=== PATIENT | male | born 1975 | race Caucasian/White ===

== ENCOUNTER 2021-07-14 21:01 | Emergency (ER) | payer MEDICARE, OTHER ==
--- NOTE | 2021-07-14 21:14 | ERPHSYRPT ---
- History of Present Illness Time Seen by Provider: 07/14/21 21:13 Source: patient Exam Limitations: no limitations Physician History: This is a 46-year-old renal transplant patient who is on clonidine, beta-jonatan and amlodipine. Patient was feeling funny use with complaints of a mild headache and feeling "foggy". He took his blood pressure and 3 different times the blood pressure was is elevated. He went ahead and took his evening medication and it was still elevated so he came to emergency room for evaluation. At the time of his evaluation with me in the emergency department his systolic blood pressure was 137. He denies chest pain at this time. He still feels a little foggy. He has not had fevers chills or cough. He has not had any nausea vomiting or diarrhea. He has no abdominal pain. Timing/Duration: today Severity: mild (To moderate) Modifying Factors: Improves With: nothing Associated Symptoms: headaches, No nausea, No vomiting, No abdominal pain, No shortness of breath, No chest pain, No fever Allergies/Adverse Reactions: No Known Drug Allergies Allergy (Verified 07/14/21 21:22) Home Medications: Amlodipine Besylate 10 mg PO DAILY 07/14/21 [History] Carvedilol [Coreg] 25 mg PO BID 07/14/21 [History] Famotidine 20 mg PO DAILY 07/14/21 [History] Furosemide [Lasix] 20 mg PO DAILY 07/14/21 [History] Tacrolimus 5 mg PO DAILY 07/14/21 [History] cloNIDine HCL [Clonidine HCl] 0.2 mg PO TID 07/14/21 [History] Hx Tetanus, Diphtheria Vaccination/Date Given: Yes Hx Influenza Vaccination/Date Given: No Hx Pneumococcal Vaccination/Date Given: No Travel Risk - International Travel Have you traveled outside of the country in past 3 weeks: No - Coronavirus Screening Are you exhibiting any of the following symptoms?: No Close contact with a COVID-19 positive Pt in past 14-21 Days: No - Review of Systems Constitutional: No Symptoms Eyes: No Symptoms Ears, Nose, & Throat: No Symptoms Respiratory: No Symptoms Cardiac: No Symptoms Abdominal/Gastrointestinal: No Symptoms Genitourinary Symptoms: No Symptoms Musculoskeletal: No Symptoms Skin: No Symptoms Neurological: Headache, Other (Feels as though he is in a fog) Psychological: No Symptoms Endocrine: No Symptoms Hematologic/Lymphatic: No Symptoms Immunological/Allergic: No Symptoms All Other Systems: Reviewed and Negative - Past Medical History Pertinent Past Medical History: Yes Neurological History: Migraines ENT History: No Pertinent History Cardiac History: Hypertension Respiratory History: Bronchitis Endocrine Medical History: No Pertinent History Musculoskeletal History: No Pertinent History GI Medical History: Gallbladder Disease History: No Pertinent History Psycho-Social History: No Pertinent History Male Reproductive Disorders: No Pertinent History - Past Surgical History Past Surgical History: Yes Neuro Surgical History: No Pertinent History Cardiac: No Pertinent History Respiratory: No Pertinent History Gastrointestinal: Cholecystectomy Genitourinary: No Pertinent History Musculoskeletal: No Pertinent History Male Surgical History: No Pertinent History - Social History Smoking Status: Never smoker Exposure to second hand smoke: No Drug Use: none Patient Lives Alone: Yes - Nursing Vital Signs Nursing Vital Signs: Initial Vital Signs Temperature 98.3 F 07/14/21 21:03 Pulse Rate 71 07/14/21 21:03 Respiratory Rate 15 07/14/21 21:03 Blood Pressure 163/117 07/14/21 21:03 O2 Sat by Pulse Oximetry 98 07/14/21 21:03 - Physical Exam General Appearance: no apparent distress, alert, anxiety Eye Exam: PERRL/EOMI, eyes nml inspection Ears, Nose, Throat Exam: normal ENT inspection, moist mucous membranes Neck Exam: normal inspection, non-tender, supple, full range of motion Respiratory Exam: normal breath sounds, lungs clear, airway intact, No chest tenderness, No respiratory distress Cardiovascular Exam: regular rate/rhythm, normal heart sounds, normal peripheral pulses Gastrointestinal/Abdomen Exam: soft, normal bowel sounds, No tenderness Rectal Exam: not done Back Exam: normal inspection, normal range of motion, No CVA tenderness, No vertebral tenderness Extremity Exam: normal inspection, normal range of motion, pelvis stable Neurologic Exam: alert, oriented x 3, cooperative, 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 No comparison EKG) Ordered Tests: Active Orders 24 hr Category Date Time Status Specialist [employer] STAT Care 07/14/21 21:34 Active EKG-ER Only STAT Care 07/14/21 21:33 Active IV Insertion STAT Care 07/14/21 21:33 Active Pulse Oximetry (ED) STAT Care 07/14/21 21:33 Active HEAD WITHOUT CONTRAST [CT] Stat Exams 07/14/21 22:21 Taken CBC W DIFF Stat Lab 07/14/21 21:10 Completed CMP Stat Lab 07/14/21 21:10 Completed MAGNESIUM Stat Lab 07/14/21 21:10 Completed TROPONIN Q3H Lab 07/14/21 21:10 Completed TROPONIN Q3H Lab 07/15/21 00:45 Ordered TROPONIN Q3H Lab 07/15/21 03:45 Ordered TROPONIN Q3H Lab 07/15/21 06:45 Ordered TROPONIN Q3H Lab 07/15/21 09:45 Ordered UA W/RFX UR CULTURE Stat Lab 07/14/21 23:55 Completed Lab/Rad Data: Laboratory Result Diagrams 07/14/21 21:10 07/14/21 21:10 Laboratory Results 07/14/21 07/14/21 07/14/21 Range/Units 23:55 21:10 21:10 WBC (4.0-10.5) K/mm3 RBC (4.1-5.6) M/mm3 Hgb (12.5-18.0) gm/dl Hct (42-50) % MCV (78-100) fl MCH (26-32) pg MCHC (32-36) g/dl RDW (11.5-14.0) % Plt Count (150-450) K/mm3 MPV (7.5-11.0) fl Gran % (36.0-66.0) % Eos # (Auto) (0-0.5) Absolute Lymphs (auto) (1.0-4.6) Absolute Monos (auto) (0.0-1.3) Lymphocytes % (24.0-44.0) % Monocytes % (0.0-12.0) % Eosinophils % (0.00-5.0) % Basophils % (0.0-0.4) % Absolute Granulocytes (1.4-6.9) Basophils # (0-0.4) Sodium 139 (137-145) mmol/L Potassium 4.4 (3.5-5.1) mmol/L Chloride 102 (98-107) mmol/L Carbon Dioxide 26 (22-30) mmol/L Anion Gap 15.4 H (5-15) MEQ/L BUN 15 (9-20) mg/dL Creatinine 1.17 (0.66-1.25) mg/dL Estimated GFR > 60.0 ML/MIN Glucose 122 H (74-106) mg/dL Calcium 9.7 (8.4-10.2) mg/dL Magnesium 1.5 L (1.6-2.3) mg/dL Total Bilirubin 0.60 (0.2-1.3) mg/dL AST 37 (17-59) U/L ALT 50 (0-50) U/L Alkaline Phosphatase 66 (38-126) U/L Troponin I < 0.012 (0.000-0.034) ng/mL Serum Total Protein 7.7 (6.3-8.2) g/dL Albumin 4.7 (3.5-5.0) g/dL Urine Color YELLOW (YELLOW) Urine Appearance CLEAR (CLEAR) Urine pH 5.0 (5-6) Ur Specific [place] 1.019 (1.005-1.025) Urine Protein 100 (Negative) Urine Ketones NEGATIVE (NEGATIVE) Urine Blood NEGATIVE (0-5) Zackery/ul Urine Nitrite NEGATIVE (NEGATIVE) Urine Bilirubin NEGATIVE (NEGATIVE) Urine Urobilinogen NEGATIVE (0-1) mg/dL Ur Leukocyte Esterase NEGATIVE (NEGATIVE) Urine WBC (Auto) NONE (0-5) /HPF Urine RBC (Auto) NONE (0-2) /HPF U Epithel Cells (Auto) NONE (FEW) /HPF Urine Bacteria (Auto) NONE (NEGATIVE) /HPF Urine Culture Reflexed NO (NO) Urine Glucose NEGATIVE (NEGATIVE) mg/dL 07/14/21 Range/Units 21:10 WBC 7.1 (4.0-10.5) K/mm3 RBC 5.97 H (4.1-5.6) M/mm3 Hgb 16.8 (12.5-18.0) gm/dl Hct 47.8 (42-50) % MCV 80.1 (78-100) fl MCH 28.1 (26-32) pg MCHC 35.1 (32-36) g/dl RDW 13.7 (11.5-14.0) % Plt Count 238 (150-450) K/mm3 MPV 11.4 H (7.5-11.0) fl Gran % 57.6 (36.0-66.0) % Eos # (Auto) 0.17 (0-0.5) Absolute Lymphs (auto) 2.24 (1.0-4.6) Absolute Monos (auto) 0.58 (0.0-1.3) Lymphocytes % 31.5 (24.0-44.0) % Monocytes % 8.2 (0.0-12.0) % Eosinophils % 2.4 (0.00-5.0) % Basophils % 0.3 (0.0-0.4) % Absolute Granulocytes 4.09 (1.4-6.9) Basophils # 0.02 (0-0.4) Sodium (137-145) mmol/L Potassium (3.5-5.1) mmol/L Chloride (98-107) mmol/L Carbon Dioxide (22-30) mmol/L Anion Gap (5-15) MEQ/L BUN (9-20) mg/dL Creatinine (0.66-1.25) mg/dL Estimated GFR ML/MIN Glucose (74-106) mg/dL Calcium (8.4-10.2) mg/dL Magnesium (1.6-2.3) mg/dL Total Bilirubin (0.2-1.3) mg/dL AST (17-59) U/L ALT (0-50) U/L Alkaline Phosphatase (38-126) U/L Troponin I (0.000-0.034) ng/mL Serum Total Protein (6.3-8.2) g/dL Albumin (3.5-5.0) g/dL Urine Color (YELLOW) Urine Appearance (CLEAR) Urine pH (5-6) Ur Specific [place] (1.005-1.025) Urine Protein (Negative) Urine Ketones (NEGATIVE) Urine Blood (0-5) Zackery/ul Urine Nitrite (NEGATIVE) Urine Bilirubin (NEGATIVE) Urine Urobilinogen (0-1) mg/dL Ur Leukocyte Esterase (NEGATIVE) Urine WBC (Auto) (0-5) /HPF Urine RBC (Auto) (0-2) /HPF U Epithel Cells (Auto) (FEW) /HPF Urine Bacteria (Auto) (NEGATIVE) /HPF Urine Culture Reflexed (NO) Urine Glucose (NEGATIVE) mg/dL - Progress Progress: improved Progress Note: 07/14/21 23:28 CAT scan of the head without contrast shows no acute intracranial abnormality. Counseled pt/family regarding: lab results, diagnosis, need for follow-up, rad results - Departure Departure Disposition: Home Clinical Impression: Hypertension Condition: Stable Critical Care Time: No Referrals: ZURI POWELL [ACTIVE STAFF] - Additional Instructions: Take your medication as prescribed. Follow-up with your renal transplant doctor and proof tester for further management. Return to emergency department if symptomatic or concerns about your blood pressure.
[2021-07-14 21:42] LABS: Absolute Neutrophil Ct (ANC) 4.09 (1.4-6.9); BASOPHIL % 0.3 % (0.0-0.4); Basophil (Absolute #) 0.02 (0-0.4); Eosinophil % 2.4 % (0.00-5.0); Eosinophil (Absolute #) 0.17 (0-0.5); Hematocrit 47.8 % (42-50); Hemoglobin 16.8 gm/dl (12.5-18.0); Lymphocyte (Absolute #) 2.24 (1.0-4.6); Lymphocytes % 31.5 % (24.0-44.0); Mean Cell Volume 80.1 fl (78-100); Mean Corpuscular Hemoglobin 28.1 pg (26-32); Mean Corpuscular Hgb Concent. 35.1 g/dl (32-36); Mean Platelet Volume 11.4 fl (7.5-11.0); Monocyte (Absolute #) 0.58 (0.0-1.3); Monocytes % 8.2 % (0.0-12.0); Neutrophil % 57.6 % (36.0-66.0); Platelet Count 238 K/mm3 (150-450); Red Blood Count 5.97 M/mm3 (4.1-5.6); Red Cell Distribution Width 13.7 % (11.5-14.0); White Blood Count 7.1 K/mm3 (4.0-10.5)
[2021-07-14 21:48] LABS: ALBUMIN 4.7 g/dL (3.5-5.0); ALKALINE PHOSPHATASE 66 U/L (38-126); ANION GAP 15.4 MEQ/L (5-15); BLOOD UREA NITROGEN 15 mg/dL (9-20); CHLORIDE 102 mmol/L (98-107); Calcium 9.7 mg/dL (8.4-10.2); Carbon Dioxide 26 mmol/L (22-30); Creatinine 1 1.17 mg/dL (0.66-1.25); EST GLOMERULAR FILTRATION RATE > 60.0 ML/MIN; Glucose 122 mg/dL (74-106); MAGNESIUM 1.5 mg/dL (1.6-2.3); Potassium 4.4 mmol/L (3.5-5.1); SGOT/AST 37 U/L (17-59); SGPT/ALT 50 U/L (0-50); SODIUM 139 mmol/L (137-145); Total Protein 7.7 g/dL (6.3-8.2)
[2021-07-14 23:59] LABS: Appearance CLEAR (CLEAR); Bilirubin NEGATIVE (NEGATIVE); Blood NEGATIVE Ery/ul (0-5); Glucose NEGATIVE (NEGATIVE); Ketones NEGATIVE (NEGATIVE); Leukocyte Esterase NEGATIVE (NEGATIVE); Nitrite NEGATIVE (NEGATIVE); Protein,Urine Dip 100 (Negative); Specific Gravity 1.019 (1.005-1.025); Urobilinogen NEGATIVE mg/dL (0-1)
[2021-07-15 00:23] VITALS: BP 136/85; PULSE 61; O2SAT 97
--- NOTE | 2021-07-15 07:09 | XRAY ---
Indication: Headache. History high blood pressure. Multiple contiguous axial images obtained through the head without contrast. Comparison: October 24, 2016. Normal appearing brain parenchyma, ventricles, and bony calvarium. Visualized paranasal sinuses and mastoid air cells are clear. Impression: Continued normal CT head without contrast exam. Comment: Preliminary interpretation made by [facility]. No critical discrepancy.
== END 2021-07-15 00:31 | disposition home or self-care (01) ==
LOC: ED 21:01
DX: I10 Essential (primary) hypertension (principal); Z94.0 Kidney transplant status; R51.9 Headache, unspecified; Z79.899 Other long term (current) drug therapy
CPT/HCPCS: 36000; 36415; 70450; 80053; 81001; 83735; 84484; 85025; 93005; 93041; 94760; 99284